=== PATIENT | male | born 1985 | race American Indian/Alaskan Native ===

== ENCOUNTER 2016-12-26 16:20 | Emergency (ER) | payer MEDICAID ==
[2016-12-26 18:37] LABS: Basophils % (Auto) 0.9 % (0.0-1.8); Eosinophils % (Auto) 2.1 % (0.0-4.3); Hematocrit 42.8 % (35.5-45.6); Hemoglobin 14.1 gm/dl (11.8-15.2); Mean Corpuscular HGB Conc 33 % (32-34); Mean Corpuscular Hemoglobin 29 pg (28-32); Mean Corpuscular Volume 89 fl (84-94); Platelet Count 194 K/mm3 (140-440); Red Blood Count 4.84 M/mm3 (3.65-5.03); Red Cell Distribution Width 13.7 % (13.2-15.2); White Blood Count 5.6 K/mm3 (4.5-11.0)
[2016-12-26 18:46] LABS: INR 1.1 (0.87-1.13)
[2016-12-26 18:47] LABS: Partial Thromboplastin Time 25.6 Sec. (24.2-36.6)
[2016-12-26 18:57] LABS: Anion Gap 19 mmol/L; BUN/Creatinine Ratio 18.88; Blood Urea Nitrogen 17 mg/dL (9-20); Calcium 9.4 mg/dL (8.4-10.2); Carbon Dioxide 24 mmol/L (22-30); Chloride 101.6 mmol/L (98-107); Glucose 90 mg/dL (75-100); Potassium 4.7 mmol/L (3.6-5.0); Sodium 140 mmol/L (137-145)
[2016-12-26 18:59] LABS: Creatine Kinase MB 3.8 ng/mL (0.0-4.0)
[2016-12-26 19:00] LABS: Blood Urea Nitrogen 17 mg/dL (9-20); Carbon Dioxide 24 mmol/L (22-30)
[2016-12-26 19:01] LABS: Alanine Aminotransferase 26 units/L (7-56); Albumin 4.6 g/dL (3.9-5); Albumin/Globulin Ratio 1.8 %; Alkaline Phosphatase 37 units/L (35-129); Anion Gap 18 mmol/L; BUN/Creatinine Ratio 18.88; Calcium 9.2 mg/dL (8.4-10.2); Chloride 101.7 mmol/L (98-107); Creatine Kinase 577 units/L (55-170); Glucose 90 mg/dL (75-100); Potassium 4.6 mmol/L (3.6-5.0); Sodium 139 mmol/L (137-145); Total Protein 7.1 g/dL (6.3-8.2)
[2016-12-26 23:10] VITALS: BP 138/96
--- NOTE | 2016-12-28 06:49 | Emergency Department Report ---
Entered by KIT HERNANDEZ, acting as scribe for MYLES LEON PA. Chief Complaint: Chest Pain Stated Complaint: CHEST PAINS / POSS BLOOD CLOT LT LEG Time Seen by Provider: 12/26/16 18:03 - HPI History of Present Illness: 31 year old male with PMHx DVT presents with c/o chest pain and associated shortness of breath for 3-4 days. Patient reports he is non-compliant with Coumadin but notes he has been administering Lovenox 150 mg IM daily for 3-4 days. Pt also c/o of non-traumatic left lateral neck pain that began this afternoon. - ROS Review of Systems: Cardiac: positive for chest pain Respiratory: positive for shortness of breath Neck: positive for left lateral neck pain. Negative for injury. - Exam Vital Signs: Vital Signs 12/26/16 17:47 Temperature 98.6 F Pulse Rate 85 Respiratory 22 Rate Blood Pressure 143/93 O2 Sat by Pulse 100 Oximetry Physical Exam: Constitutional: Non-toxic. No acute distress. Neck: Normal external exam. Full range of motion. No midline vertebral tenderness. Cardiac: Normal rate and rhythm. Normal S1/S2. Peripheral pulses equal, no deficiency. No edema. Respiratory: No respiratory distress. Clear to auscultation bilaterally. MS/Extremity: Calves are equal in circumference and non-tender bilaterally. Right groin tender to palpation. MSE screening note: Focused history and physical exam performed. Due to findings the following was ordered: Chest pain protocol with CTA C-collar placed at patient's request due to neck pain. ED Disposition for MSE Condition: Stable This documentation as recorded by the scribe,KIT HERNANDEZ,accurately reflects the service I personally performed and the decisions made by EDWARD partida JANA' M, PA.
== END 2016-12-27 00:07 | disposition left against medical advice (07) ==
LOC: ED 16:20
DX: R06.02 Shortness of breath (principal); R07.9 Chest pain, unspecified; M54.2 Cervicalgia; Z53.21 Procedure and treatment not carried out due to patient leaving prior to being seen by health care provider
CPT/HCPCS: 36415; 80048; 80053; 82550; 82553; 84484; 85025; 85610; 85730; 93005; 93010